=== PATIENT | female | born 2000 | race Caucasian/White ===

== ENCOUNTER 2024-08-29 14:01 | Emergency (ER) | payer BC, SELFPAY ==
[2024-08-29 14:03] VITALS: BP 123/82; PULSE 85; RESP 16; TEMP 36.6; O2SAT 96; BMI 27.1
--- NOTE | 2024-08-29 14:39 | EDS_ITS ---
HPI HPI - GI History of Present Illness Chief Complaint: Abd Pain Informant: patient Abdominal Pain/Flank Pain Onset: Month(s) Context: Gradual Onset Timing: Continuous Quality: Burning Location: Epigastric and RUQ Current Severity: Mild Maximum Severity: Moderate Worsened by: Food Relieved by: Nothing Nausea/Vomiting/Emesis GI Symptom: Negative for Nausea or Vomiting Diarrhea/Melena/Hematochezia GI Symptom: Negative for Diarrhea, Melena or Hematochezia Associated Symptoms Associated Symptoms: Negative for Dysuria, Frequency, Hematuria or Urgency Narrative Narrative: Healthy 24-year-old female no seen past medical or surgical history. States she has had abdominal pain primarily epigastric last 3 months. Had an upper endoscopy done by [facility] telecommunications network engineer which showed no specific abnormality. She has been on omeprazole once it initially helped but now the pain seems to be getting worse. If she has had at least a 10 pound weight loss maybe as much is 25. She said the last few days the pains gotten worse. She denies any vomiting or diarrhea. No fever. No melena. Eating makes the pain worse. Nothing particular makes it better. She has never had any abdominal surgeries. Denies any vaginal bleeding or dysuria. Last menstrual period was 2 days ago Prior similar symptoms: Yes Recent Illness/Hospitalization: No PFSH PFSH Medical History no medical history no medical history Home Medications ?Medication ?Instructions ?Recorded ?Last Taken ?Type omeprazole 40 mg capsule,delayed 40 mg PO DAILY 08/29/24 Unknown History release sucralfate 1 gram tablet (Carafate) 1 g PO Q6H 10 days #40 tabs 08/29/24 Unknown Rx Allergy/AdvReac Type Severity Reaction Status Date / Time Penicillins (PCN) Allergy Mild Hives Verified 08/29/24 14:05 Surgical History H/O knee surgery Social History Smoking Status: Never smoker ROS ROS ED ROS Narrative Epigastric abdominal pain. Constitutional Constitutional ED: Denies chills or fever(s) ENT ENT ED: Denies ear pain Cardiovascular Cardiovascular: Denies chest pain Respiratory/Chest Respiratory/Chest: Denies cough Gastrointestinal Gastrointestinal: Reports abdominal pain; Denies constipation, diarrhea, melena, nausea or vomiting Genitourinary Genitourinary ED: Denies dysuria or hematuria Musculoskeletal Musculoskeletal: Denies arthralgias or back pain Integumentary Denies abscess Neurologic Neurologic: Denies headache(s) Psychiatric Psychiatric: Denies anxiety Endocrine Endocrinology: Denies polydipsia Hematologic/Lymphatic Hematologic/Lymphatic: Denies easy bleeding Allergic/Immunologic Allergic/Immunologic ED: Denies mouth swelling, tongue swelling or urticaria EXAM Physical Exam Narrative Exam Narrative: Well-appearing 25-year-old female. Vital signs stable afebrile. H EENT exam unremarkable. Mytrex murmurs. Neck nontender no lymphadenopathy. Lungs clear to auscultation bilateral. Heart regular rhythm rate about 80 no murmur. Chest wall ribs nontender. Abdomen soft nondistended normal bowel sounds without peritoneal signs. Very mild epigastric tenderness. No right upper quadrant tenderness or Velazquez sign. No right lower quadrant tenderness. No hernia. No mass. No distention. Moving all 4 extremities. Nontender no edema. Back nontender. Neurologically patient awake alert no focal motor deficits. Const Vital Signs: 08/29/24 14:03 Temperature 97.8 F Temperature Source Oral Pulse Rate 85 Respiratory Rate 16 Blood Pressure 123/82 H Blood Pressure Mean 95 Pulse Ox 96 Oxygen Delivery Method Room Air Positive well nourished and well developed; Negative for obese, cachectic, contractures or unkempt General Appearance ED: well developed and NAD; Negative for unkempt, cachectic, contractures or pallor Nutritional Appearance: Negative for cachectic or obese HEENT Reports moist mucous membranes normocephalic and atraumatic Eyes PERRL and EOMs intact bilaterally Neck no lymphadenopathy, supple and no JVD General: Negative for tenderness Carotids: Negative for other Resp normal respiratory effort and clear to auscultation bilaterally Effort and Inspection: Negative for respiratory distress Auscultation: Negative for rales, rhonchi or wheezes Cardio regular rate, regular rhythm, S1 normal heart sound, S2 normal heart sound and no murmurs Rate: Negative for bradycardia or tachycardic GI non-distended and no masses; Negative for non-tender Inspection: Negative for abdominal distention Auscultation: normoactive bowel sounds Palpation: soft and tender; Negative for guarding, rigid, hernia, mass, pulsatile mass or rebound tenderness present Back/Spine no CVA tenderness General Back: Negative for CVA tenderness Cervical Spine: Negative for cervical spine tenderness Thoracic Spine / Upper Back: Negative for thoracic spinal tenderness Lumbar Spine / Lower Back: Negative for lumbar spinal tenderness Coccyx: Negative for other Extremity full ROM General Extremety ED: Negative for edema or tenderness General Extremity: Negative for edema Neuro CN's II-XII intact bilaterally and moves all extremities Sensorium / Orientation: alert, oriented to person and oriented to place Motor Exam: strength 5/5 throughout Psych mental status grossly normal and thought process normal Appearance: Negative for unkempt Attitude: No agitated Mood & Affect: Negative for depressed or anxious Skin no wounds General Skin Exam: Negative for jaundice or pallor Lesions: no lesions Rashes: no rashes MDM MDM MDM Narrative Medical decision making narrative: 24 her abdomen is benign I do not think a CAT scan is going to show anything at this time. She ate about an hour and a half ago I do not think an ultrasound would be helpful at this time due to most likely the gallbladder be contracted. And her exam really is not for cholecystitis. Labs can be obtained. She be treated with GI cocktail and Protonix. Repeat exam patient is doing well at 3:30 PM. Abdomen is benign. We went over all of her test results. Again she ate recently ultrasound would most likely show a contracted gallbladder. I do not think a CAT scan would be very helpful. Patient is comfortable being discharged home with outpatient right upper quadrant gallbladder ultrasound which I am setting up for her. Patient is scheduled for 730 tomorrow morning. She knows to remain n.p.o. after midnight. History & Record Review Discussion w/independent historian: Patient and Significant other Lab Data Attestation: I reviewed the patient's lab results. Lab results narrative: CBC normal. White count of 7. H&H of 14 and 45. Platelets 228. Electrolytes unremarkable gap 6. Normal BUN of 8 creatinine 1. Glucose 99. Liver enzymes unremarkable total bilirubin 1.2. Lipase 45. Serum test negative. Labs: Laboratory Results - last 24 hr 08/29/24 14:15 WBC 7.5 RBC 5.15 Hgb 14.9 Hct 45.5 MCV 88.3 MCH 28.9 MCHC 32.7 RDW Std Deviation 39.7 RDW Coeff of Ashutosh 12.3 Plt Count 228 MPV 9.7 Immature Gran % (Auto) 0.400 Neut % (Auto) 63.7 Lymph % (Auto) 27.1 Burnett % (Auto) 6.2 Eos % (Auto) 1.9 Baso % (Auto) 0.7 Absolute Neuts (auto) 4.8 Absolute Lymphs (auto) 2.02 Nucleated RBC % 0 Sodium 139 Potassium 4.7 Chloride 109 H Carbon Dioxide 24.0 Anion Gap 6 BUN 8 Creatinine 1.00 Estim Creat Clear Calc 87.34 Est GFR (MDRD) Af Amer 87 Est GFR (MDRD) Non-Af 72 BUN/Creatinine Ratio 8.0 L Glucose 99 Calcium 8.9 Total Bilirubin 1.20 H AST 35 ALT 26 Alkaline Phosphatase 62 Total Protein 7.8 Albumin 3.3 Globulin 4.5 H Albumin/Globulin Ratio 0.7 L Lipase 45 Serum , Qual NEGATIVE Discharge Plan Triage Chief Complaint: Abd Pain ED Provider: Magen Azevedo Dx/Rx/DC Orders Clinical Impression: Abdominal pain Instructions: Abdominal Pain Prescriptions: New sucralfate [Carafate] 1 gram tablet 1 g PO Q6H 10 Days Qty: 40 0RF Rx Instructions: Take 1 Carafate tablet before each meal and at bedtime. No Action omeprazole 40 mg capsule,delayed release(DR/EC) 40 mg PO DAILY Other Ambulatory Orders: Gallbladder (Routine) Facility: [facility] - Location: [facility] Ordered By: Dr. Magen Azevedo Primary Care Provider: Care Physician,No Primary Referrals: Care Physician,No Primary [Primary Care Provider] - Activity Restrictions/Additional Instructions: Follow-up with your new primary care physician as scheduled. Your labs were normal today. If you are having worsening pain, fever or intractable vomiting return. Continue your omeprazole. I will also place you on something called Carafate which will take before each meal and at bedtime. Follow-up to get your outpatient ultrasound of your gallbladder. Print Language: Romansh Disposition Disposition: Home, Self Care
[2024-08-29 14:47] LABS: Absolute Lymphocyte Count 2.02 X10^3/uL (0.83-4.51); Absolute Neutrophil Count 4.8 X10^3/uL (2.0-7.7); Basophil# 0.05 X10^3/uL; Basophil% 0.7 % (0-1); Eosinophil# 0.14 X10^3/uL; Eosinophils% 1.9 % (0-5); Hematocrit 45.5 % (37-47); Hemoglobin 14.9 g/dL (12.0-15.0); Lymphocyte # 2.02 X10^3/ul (0.83-4.51); Lymphocyte % 27.1 % (19-41); Mean Corp Hgb Conc 32.7 g/dL (32-36); Mean Corpuscular Hgb 28.9 pg (27.0-32.0); Mean Corpuscular Volume 88.3 fL (81-99); Mean Platelet Vol. 9.7 fl (6.2-12.0); Monocyte# 0.46 X10^3/uL; Monocyte% 6.2 % (0-10); NRBC Flagged by Analyzer 0 % (0-5); Neutrophil # 4.75 X10^3/uL (2.7-7.7); Neutrophil % 63.7 % (47-70); Platelet Count 228 K/mm3 (150-450); RBC Distribution Width CV 12.3 % (11.6-14.6); RBC Distribution Width SD 39.7 fl (35.1-43.9); Red Blood Count 5.15 M/mm3 (4.2-5.4); White Blood Count 7.5 K/mm3 (4.4-11.0)
[2024-08-29] MEDS: Pantoprazole Sodium 40 MG Tablet PO (14:47)
[2024-08-29] MEDS: Lidocaine 2% Viscous15 ML UDC 15 ML PO (14:47)
[2024-08-29] MEDS: Mag Hydrox/Al Hydrox/Simeth 30 ML UDC PO (14:47)
[2024-08-29 14:53] LABS: Internal QC Validated? YES +Cl - CLEAR BKGD; Pregnancy, Serum, hCG Quali. NEGATIVE Negative
[2024-08-29 15:10] LABS: ALB/GLOB Ratio 0.7 RATIO (0.9-2.4); AST(SGOT) 35 U/L (15-37); Alanine Aminotransfer ALT/SGPT 26 U/L (13-56); Albumin, Serum 3.3 g/dL (3.2-5.0); Alkaline Phosphatase 62 U/L (45-117); Anion Gap 6 (5-15); BUN 8 mg/dL (7-18); Calcium,Total 8.9 mg/dL (8.5-10.1); Chloride 109 mmol/L (98-107); EST Glomerular Filtration Rate 72 mL/min (>60); Est Glom Filt Rate - Afr Amer 87 mL/min (>60); Estimated Creatinine Clearance 87.34 ml/min; Globulin 4.5 g/dL (2.2-4.2); Glucose 99 mg/dL (74-106); Lipase 45 U/L (13-75); Potassium 4.7 mmol/L (3.5-5.1); Protein, Total 7.8 g/dL (6.4-8.2); Sodium Level 139 mmol/L (136-145)
== END 2024-08-29 16:11 | disposition home or self-care (01) ==
PROVIDERS: Emergency Provider Emergency Medicine; Referring Provider Emergency Medicine; Visit Provider Emergency Medicine
DX: R10.9 Unspecified abdominal pain (principal); Z79.899 Other long term (current) drug therapy
CPT/HCPCS: 80053; 83690; 84703; 85025; 99283; A4216

== ENCOUNTER → 2024-08-30 | Outpatient (CLI) | payer BC, SELFPAY ==
--- NOTE | 2024-08-30 07:23 | US_ITS ---
EXAM: US ABDOMEN LIMITED, RIGHT UPPER QUADRANT CLINICAL INDICATION: abd pain TECHNIQUE: Real-time ultrasound of the right upper quadrant with image documentation. COMPARISON: No relevant prior studies available. FINDINGS: LIVER: The liver measures 13.9 cm in length. There is normal echotexture. No intrahepatic biliary ductal dilation. GALLBLADDER: Gallbladder wall measures 1 mm. No shadowing gallstone. No pericholecystic fluid. Negative sonographic Velazquez''s sign. COMMON BILE DUCT: Common bile duct measures 3 mm. The proximal common bile duct is within normal limits for the patient''s age. PANCREAS: Unremarkable as visualized. No focal abnormality is demonstrated in the pancreas. No pancreatic ductal dilatation. RIGHT KIDNEY: The right renal cortex measures 1.4 cm. There is no hydronephrosis. No shadowing calculus. No focal lesion or perinephric collection is demonstrated. The right kidney measures 9.2 x 4.5 4.2 cm. US/Gallbladder IMPRESSION: No acute findings in the right upper quadrant. Electronically Signed: Tay Johnson MD at 0:01 EDT ,
== END | disposition home or self-care (01) ==
LOC: US 07:19
PROVIDERS: Referring Provider Emergency Medicine; Visit Provider Emergency Medicine
DX: R10.9 Unspecified abdominal pain (principal)
CPT/HCPCS: 76705

== ENCOUNTER 2025-01-08 16:03 | Emergency (ER) | payer OTHER, BC, SELFPAY ==
[2025-01-08 16:06] VITALS: BP 115/71; PULSE 91; RESP 18; TEMP 36.6; O2SAT 100; BMI 24.7
[2025-01-08 20:05] VITALS: BP 105/60; PULSE 72; RESP 16; O2SAT 100
--- NOTE | 2025-01-08 20:20 | EX.ED.GENINJ ---
HPI History of Present Illness Chief Complaint: Head Injury [facility] Medical History (Updated 01/08/25 @ 20:02 by Lila Long) H/O multiple concussions Home Medications ?Medication ?Instructions ?Recorded ?Last Taken ?Type omeprazole 40 mg capsule,delayed 40 mg PO DAILY 08/29/24 Unknown History release sucralfate 1 gram tablet (Carafate) 1 g PO Q6H 10 days #40 tabs 08/29/24 Unknown Rx Allergy/AdvReac Type Severity Reaction Status Date / Time Penicillins (PCN) Allergy Mild Hives Verified 01/08/25 16:06 Surgical History H/O knee surgery Social History Smoking Status: Never smoker EXAM Physical Exam Const Vital Signs: 01/08/25 16:06 01/08/25 20:02 01/08/25 20:05 Temperature 97.9 F Temperature Source Temporal Pulse Rate 91 72 Respiratory Rate 18 16 Respiratory Effort Normal Respiratory Depth Normal Respiratory Pattern Normal Blood Pressure 115/71 105/60 Blood Pressure Mean 85 75 Pulse Ox 100 100 Oxygen Delivery Method Room Air Room Air Room Air MDM MDM MDM Narrative Medical decision making narrative: HISTORY OF PRESENT ILLNESS: 24-year-old female presents with head trauma. Notes she hit her head on a metal desk at work. She notes headache, eye pain blurred vision high-sensitivity. States is similar to her prior 5 concussions. Patient denies sudden onset or thunderclap headache, denies maximal intensity within 1 minute, vomiting, neck pain, stiffness, changes in vision, fever, history malignancy, syncope, or seizures associated with headache. REVIEW OF SYSTEMS: Pertinent positives: As per HPI Pertinent negatives: Vomiting, loss of movement, loss sensation, loss of vision PHYSICAL EXAM: Nursing triage notes reviewed, Vital signs reviewed Constitutional: please see mdm HENT: MMM, atraumatic, normal cephalic, no cephalhematoma Eyes: Pupils equal round and reactive to light, Extraocular muscles intact Neck: No stridor, no JVD, full neck ROM Lungs: Clear to auscultation, No wheezing or rales. No increased work of breathing, no conversational dyspnea, no accessory muscle use, no nasal flaring. No respiratory distress noted Heart: Regular rate and rhythm, No murmurs, No rubs and No gallops, 2+ distal pulses (radial, femoral, posterior tibial) in all extremities Abdomen: Soft, there is no tenderness, rigidity, rebound or guarding, no obvious peritoneal signs, no palpable pulsatile abdominal masses, no auscultated abdominal bruit : No CVAT Extremities: No edema Neuro: N alert and oriented x3, neuro exam at baseline, cranial nerves II through XII are intact. No pain with extraocular muscle movement. There is negative test of skew. 5 of 5 strength in upper and lower extremities in flexion extension. Intact sensation to light touch in upper and lower extremity dermatomes. No truncal or extremity ataxia. No dysdiadochokinesia. Normal gait. 2+ reflexes in upper and lower extremities. No meningeal signs. Negative Babinski. NIH of 0. Skin: No rash or lesions noted MEDICAL DECISION MAKING: Chief Complaint: Headache, head trauma External records reviewed:Reviewed prior imaging studies Factors affecting care: none Social determinants of health: none History obtained from others: none Consults: none MDM Narrative: Patient was initially hemodynamically stable, afebrile and nontoxic-appearing. Primary secondary trauma surveys concerning for the following differential: I considered the following differential diagnosis: ICH, concussion Patient is greater than 16, is not on blood thinners, no seizure after injury, GCS was stable 2 hours postinjury, no depressed skull fracture, no evidence of basilar skull fracture, no vomiting. Age less than 65, no retrograde amnesia and mechanism is not dangerous. CT scan of the head is not indicated at this time. I had a long shared decision-making discussion with the patient about risk and benefits of advanced imaging. Discussed risk of CT malignancy versus risk of missed diagnosis. We both agreed the patient did not require advanced images. The patient and/or family, caregivers express understanding. The patient and/or family, caregivers agrees with the plan. Shared decision making: I will have a discussion with the patient and or visitors regarding risk/benefits of further testing or admission. They will be made aware of of the risk/benefits inherent in this decision they will be given the opportunity to voice understanding. Total critical care time today provided was at least 0 minutes. This excludes separately billable procedures. Critical care time (if documented) is secondary to the patient having high probability of clinically significant/life threatening deterioration in the patient's condition which required my urgent intervention. Impression: 1. Close head injury 2. Concussion Dispo: Discharge home This note was generated with VPEP dictation software. It may contain incorrect words, spelling, and punctuation that were not noted in review of the chart prior to signing. Discharge Plan Triage Chief Complaint: Head Injury ED Provider: Mario Maldonado Dx/Rx/DC Orders Prescriptions: No Action omeprazole 40 mg capsule,delayed release(DR/EC) 40 mg PO DAILY sucralfate [Carafate] 1 gram tablet 1 g PO Q6H 10 Days Qty: 40 0RF Rx Instructions: Take 1 Carafate tablet before each meal and at bedtime. Primary Care Provider: Care Physician,No Primary Referrals: Care Physician,No Primary [Primary Care Provider] - Print Language: Indonesian
[2025-01-08 20:53] VITALS: BP 105/60; PULSE 72; RESP 16; TEMP 36.6; O2SAT 100
== END 2025-01-08 20:54 | disposition home or self-care (01) ==
LOC: ED 20:41
PROVIDERS: Emergency Provider Emergency Medicine; PCP Family Medicine; Visit Provider Emergency Medicine
DX: S06.0X0A Concussion without loss of consciousness, initial encounter (principal); X58.XXXA Exposure to other specified factors, initial encounter
CPT/HCPCS: 99282

== ENCOUNTER 2025-01-14 07:34 | Emergency (ER) | payer BC, SELFPAY ==
[2025-01-14 07:34] VITALS: BP 119/57; PULSE 82; RESP 16; TEMP 36.5; O2SAT 100; BMI 24.1
--- NOTE | 2025-01-14 07:56 | CT_ITS ---
EXAM: CT Abdomen and Pelvis With Intravenous Contrast CLINICAL INDICATION: TECHNIQUE: Axial computed tomography images of the abdomen and pelvis with intravenous contrast. This CT exam was performed using one or more of the following dose reduction techniques: automated exposure control, adjustment of the mA and/or kV according to patient size, and/or use of iterative reconstruction technique. COMPARISON: No relevant prior studies available. FINDINGS: LUNG BASES: Unremarkable. No mass. No consolidation. ABDOMEN: LIVER: Hepatomegaly with fatty infiltration. GALLBLADDER AND BILE DUCTS: Gallbladder is surgically absent. No ductal dilation. PANCREAS: Unremarkable. No mass. No ductal dilation. SPLEEN: Unremarkable. No splenomegaly. ADRENALS: Unremarkable. No mass. KIDNEYS AND URETERS: Unremarkable. No stones within either kidney. No hydronephrosis. STOMACH AND BOWEL: Unremarkable. No obstruction. No mucosal thickening. PELVIS: APPENDIX: Normal appendix. BLADDER: Unremarkable. No mass. REPRODUCTIVE: Unremarkable as visualized. ABDOMEN and PELVIS: INTRAPERITONEAL SPACE: Unremarkable. No free air. No significant fluid collection. BONES/JOINTS: No acute fracture. No dislocation. SOFT TISSUES: Umbilical hernia containing fat. VASCULATURE: Unremarkable. No abdominal aortic aneurysm. LYMPH NODES: Unremarkable. No enlarged lymph nodes. CT/Abdomen/Pelvis W IV Cont ONLY IMPRESSION: 1. Normal appendix. 2. Hepatomegaly with fatty infiltration. 3. Umbilical hernia containing fat. 4. No obstructive uropathy. Reading [facility]
--- NOTE | 2025-01-14 07:57 | ED.VIS.GI ---
HPI HPI - GI History of Present Illness Chief Complaint: Abd Pain Detail of Chief Complaint: Right upper quadrant abdominal pain for 3 weeks. Sharp and stabbing. Informant: patient Abdominal Pain/Flank Pain Onset: Weeks Context: Gradual Onset Timing: Continuous Quality: Aching Location: RUQ Current Severity: Mild Maximum Severity: Moderate Worsened by: Food Relieved by: Nothing Nausea/Vomiting/Emesis GI Symptom: Negative for Nausea or Vomiting Associated Symptoms Associated Symptoms: Negative for Dysuria, Frequency, Hematuria or Urgency Narrative Narrative: 24-year-old female history of prior cholecystectomy 3 months ago. Complaining of sharp right upper quadrant abdominal pain for the last 3 weeks. Mild weight loss. No vomiting or diarrhea. No dysuria. No fever. No diarrhea. History of kidney stones today felt different. No other abdominal surgery besides her cholecystectomy. Prior similar symptoms: No Recent Illness/Hospitalization: No PFSH PFSH Medical History Anxiety Depression FHx: cholecystectomy Ovarian cyst H/O multiple concussions Home Medications ?Medication ?Instructions ?Recorded ?Last Taken ?Type NK 01/14/25 Unknown History Allergy/AdvReac Type Severity Reaction Status Date / Time Penicillins (PCN) Allergy Mild Hives Verified 01/14/25 07:34 Family History no significant family his Surgical History H/O knee surgery Social History Smoking Status: Never smoker ROS ROS ED ROS Narrative Right upper quadrant abdominal pain. Constitutional Constitutional ED: Denies chills or fever(s) ENT ENT ED: Denies ear pain Cardiovascular Cardiovascular: Denies chest pain Respiratory/Chest Respiratory/Chest: Denies cough Gastrointestinal Gastrointestinal: Reports abdominal pain; Denies constipation, diarrhea, melena, nausea or vomiting Genitourinary Genitourinary ED: Denies dysuria or hematuria Musculoskeletal Musculoskeletal: Denies arthralgias Integumentary Denies abscess Neurologic Neurologic: Denies headache(s) Psychiatric Psychiatric: Denies anxiety Endocrine Endocrinology: Denies polydipsia Hematologic/Lymphatic Hematologic/Lymphatic: Denies easy bleeding Allergic/Immunologic Allergic/Immunologic ED: Denies mouth swelling or tongue swelling EXAM Physical Exam Narrative Exam Narrative: 24-year-old female vital signs stable afebrile. H EENT exam unremarkable. Moist mucous membranes. Pupils round react light. Neck nontender. Lungs clear to auscultation bilaterally. Heart regular rhythm no murmur. Rate about 80. Abdomen soft, nontender, nondistended normal bowel sounds without peritoneal signs. She is complaining of right upper quadrant abdominal pain but is not reproducible pain does not get worse with palpation of that area. There is no ecchymosis or bruising. No rash. Her ribs are nontender. Right lower and left side of the abdomen completely nontender. No bruising. No hernia or mass. No distention or obstruction. Soft. Positive bowel sounds. Back nontender. No reproducible pain. Moving all 4 extremities. Nontender no edema. Neurologically she is awake and alert no focal motor deficits. Const Vital Signs: 01/14/25 07:34 01/14/25 09:34 Temperature 97.7 F L Temperature Source Oral Pulse Rate 82 73 Respiratory Rate 16 16 Blood Pressure 119/57 L Blood Pressure Mean 77 Pulse Ox 100 99 Oxygen Delivery Method Room Air Room Air Positive well nourished and well developed; Negative for obese, cachectic, contractures or unkempt General Appearance ED: well developed and NAD; Negative for unkempt, cachectic, contractures or pallor Nutritional Appearance: Negative for cachectic or obese HEENT Reports moist mucous membranes normocephalic and atraumatic; Negative for trauma or tenderness Eyes PERRL and EOMs intact bilaterally General Eye ED: Negative for pale conjunctiva or scleral icterus Neck no lymphadenopathy, supple and no JVD General: Negative for tenderness Carotids: Negative for other Resp normal respiratory effort and clear to auscultation bilaterally Effort and Inspection: Negative for respiratory distress Auscultation: Negative for rales, rhonchi, wheezes or diminished lung sounds Cardio regular rate, regular rhythm, S1 normal heart sound, S2 normal heart sound and no murmurs Rate: Negative for bradycardia or tachycardic Rhythm: Negative for abnormal rhythm GI non-tender, non-distended and no masses Inspection: Negative for abdominal distention Auscultation: normoactive bowel sounds Palpation: soft; Negative for tender, guarding, rigid, hepatomegaly, splenomegaly, hernia, mass, pulsatile mass or rebound tenderness present Back/Spine no CVA tenderness General Back: Negative for CVA tenderness Cervical Spine: Negative for cervical spine tenderness Thoracic Spine / Upper Back: Negative for thoracic spinal tenderness Lumbar Spine / Lower Back: Negative for lumbar spinal tenderness Extremity full ROM General Extremety ED: Negative for edema or tenderness General Extremity: Negative for edema Neuro CN's II-XII intact bilaterally and moves all extremities Sensorium / Orientation: alert; Negative for oriented to person, oriented to place, oriented to time or orientation impaired Sensory Exam: No sensory level loss detected Motor Exam: strength 5/5 throughout; Negative for general weakness or strength abnormal Psych mental status grossly normal and thought process normal Appearance: Negative for unkempt Skin no wounds General Skin Exam: Negative for jaundice or pallor Lesions: no lesions Rashes: no rashes MDM MDM MDM Narrative Medical decision making narrative: 24-year-old female right upper quadrant abdominal pain 3 months ago had her gallbladder removed at [facility] in [place]. Exam is benign. Pain is not reproducible. She did not want a thing for pain or nor nausea. CAT scan the labs being obtained. Repeat exam at 10:08 AM patient doing well. Pain-free. Abdomen benign. No reproducible pain over her right lower lateral rib cage or her right upper quadrant or back. Exam unchanged. We discussed her test results and CAT scan she will be discharged to home with outpatient follow-up. Urine was contaminated she is having no urinary symptoms I do not think that needs to be treated. Lab Data Attestation: I reviewed the patient's lab results. Lab results narrative: CBC shows a white count of 5. H&H 14 and 44. Platelets 200. Electrolytes show a gap of 9. Normal BUN and creatinine. Glucose 85. Liver enzymes unremarkable other than total bilirubin 1.5 previously elevated. Lipase 33. Serum test negative. Urinalysis contaminated there is 25-50 white cells with 5-10 epithelial cells. 4+ bacteria. No nitrites. CAT scan no acute abnormality. Labs: Laboratory Results - last 24 hr 01/14/25 01/14/25 08:06 08:09 WBC 5.4 RBC 5.07 Hgb 14.8 Hct 44.6 MCV 88.0 MCH 29.2 MCHC 33.2 RDW Std Deviation 39.3 RDW Coeff of Ashutosh 12.3 Plt Count 200 MPV 9.8 Immature Gran % (Auto) 0.200 Neut % (Auto) 52.5 Lymph % (Auto) 37.1 [place] % (Auto) 6.3 Eos % (Auto) 3.2 Baso % (Auto) 0.7 Absolute Neuts (auto) 2.8 Absolute Lymphs (auto) 1.99 Nucleated RBC % 0 Sodium 139 Potassium 3.7 Chloride 108 H Carbon Dioxide 23.0 Anion Gap 9 BUN 10 Creatinine 0.96 Estim Creat Clear Calc 81.31 Est GFR (MDRD) Af Amer 91 Est GFR (MDRD) Non-Af 75 BUN/Creatinine Ratio 10.4 Glucose 85 Calcium 8.9 Total Bilirubin 1.50 H AST 11 L ALT 17 Alkaline Phosphatase 60 Total Protein 7.5 Albumin 3.4 Globulin 4.1 Albumin/Globulin Ratio 0.8 L Lipase 33 L Serum , Qual NEGATIVE Urine Color Yellow Urine Clarity Sl. Cloudy Urine pH 6.0 Ur Specific [place] 1.025 Urine Protein 30 H Urine Glucose (UA) Normal Urine Ketones Negative Urine Occult Blood 25 H Urine Nitrite Negative Urine Bilirubin Negative Urine Urobilinogen Normal Ur Leukocyte Esterase 500 H Urine RBC 5-10 SEEN Urine WBC 25-50 SEEN Ur Squamous Epith Cells 5-10 SEEN Ur Transition Epith Cell 0-5 SEEN Ur Renal Epithelial Cell 0-5 SEEN Urine Bacteria 4+ Urine Mucus 0 SEEN Radiography Diagnostic Testing: Clinical Impression(s) from Imaging Studies Abdomen/Pelvis CT 01/14/25 07:56 IMPRESSION: 1. Normal appendix. 2. Hepatomegaly with fatty infiltration. 3. Umbilical hernia containing fat. 4. No obstructive uropathy. Reading [facility] Discharge Plan Triage Chief Complaint: Abd Pain ED Provider: Magen Azevedo Dx/Rx/DC Orders Clinical Impression: Abdominal pain Instructions: Abdominal Pain Prescriptions: No Action NK Primary Care Provider: Milo Blanc Referrals: Milo Blanc MD [Primary Care Provider] - 1 Week if not improving Activity Restrictions/Additional Instructions: Your labs and CAT scan look good. Motrin and Tylenol for any pain. Follow-up with your doctor if not improving. Print Language: Bengali Disposition Disposition: Home, Self Care
[2025-01-14 08:17] LABS: Mucous, Urine 0 SEEN /hpf (<or=2+)
[2025-01-14 08:20] LABS: Absolute Lymphocyte Count 1.99 X10^3/uL (0.83-4.51); Absolute Neutrophil Count 2.8 X10^3/uL (2.0-7.7); Basophil# 0.04 X10^3/uL; Basophil% 0.7 % (0-1); Eosinophil# 0.17 X10^3/uL; Eosinophils% 3.2 % (0-5); Hematocrit 44.6 % (37-47); Hemoglobin 14.8 g/dL (12.0-15.0); Lymphocyte # 1.99 X10^3/ul (0.83-4.51); Lymphocyte % 37.1 % (19-41); Mean Corp Hgb Conc 33.2 g/dL (32-36); Mean Corpuscular Hgb 29.2 pg (27.0-32.0); Mean Platelet Vol. 9.8 fl (6.2-12.0); Monocyte# 0.34 X10^3/uL; Monocyte% 6.3 % (0-10); NRBC Flagged by Analyzer 0 % (0-5); Neutrophil # 2.81 X10^3/uL (2.7-7.7); Neutrophil % 52.5 % (47-70); Platelet Count 200 K/mm3 (150-450); RBC Distribution Width CV 12.3 % (11.6-14.6); RBC Distribution Width SD 39.3 fl (35.1-43.9); Red Blood Count 5.07 M/mm3 (4.2-5.4); White Blood Count 5.4 K/mm3 (4.4-11.0)
[2025-01-14 08:34] LABS: Color, Urine Yellow (Yellow); Glucose, Dipstick Normal (Normal); Ketone-Dipstick Negative (Negative); Leukocyte Esterase-Dipstick 500 /ul (Negative); Nitrite-Dipstick Negative (Negative); Occult Blood-Urine 25 /ul (Negative); Protein-Dipstick 30 mg/dl (Negative); Specific Gravity, Urine 1.025 (1.002-1.030); Urine Bilirubin Dipstick Negative (Negative); Urine Clarity Sl. Cloudy (Clear); Urine Urobilinogen Normal (Normal)
[2025-01-14 08:44] LABS: Internal QC Validated? YES +Cl - CLEAR BKGD; Pregnancy, Serum, hCG Quali. NEGATIVE Negative
[2025-01-14 08:46] LABS: Bacteria 4+ /hpf (None Seen); Red Blood Cells-Urine 5-10 SEEN /hpf (0-5); Renal Epithelial Cells 0-5 SEEN /hpf (0-5); Squamous Epithelial Cells - UA 5-10 SEEN /hpf (5-10); Transitional Epithelial - Ur 0-5 SEEN /hpf (0-5); White Blood Cells 25-50 SEEN /hpf (0-5)
[2025-01-14 08:50] LABS: ALB/GLOB Ratio 0.8 RATIO (0.9-2.4); AST(SGOT) 11 U/L (15-37); Alanine Aminotransfer ALT/SGPT 17 U/L (13-56); Albumin, Serum 3.4 g/dL (3.2-5.0); Alkaline Phosphatase 60 U/L (45-117); Anion Gap 9 (5-15); BUN 10 mg/dL (7-18); BUN/Creat Ratio 10.4 RATIO (10-20); Calcium,Total 8.9 mg/dL (8.5-10.1); Chloride 108 mmol/L (98-107); Creatinine, Serum 0.96 mg/dL (0.55-1.02); EST Glomerular Filtration Rate 75 mL/min (>60); Est Glom Filt Rate - Afr Amer 91 mL/min (>60); Estimated Creatinine Clearance 81.31 ml/min; Globulin 4.1 g/dL (2.2-4.2); Glucose 85 mg/dL (74-106); Lipase 33 U/L (73-393); Potassium 3.7 mmol/L (3.5-5.1); Protein, Total 7.5 g/dL (6.4-8.2); Sodium Level 139 mmol/L (136-145)
[2025-01-14 09:34] VITALS: PULSE 73; RESP 16; O2SAT 99
[2025-01-14 10:23] VITALS: BP 119/57; PULSE 73; RESP 16; TEMP 36.5; O2SAT 99
== END 2025-01-14 10:26 | disposition home or self-care (01) ==
PROVIDERS: Emergency Provider Emergency Medicine; PCP Family Medicine; Visit Provider Emergency Medicine
DX: R10.11 Right upper quadrant pain (principal)
CPT/HCPCS: 74177; 80053; 81001; 83690; 84703; 85025; 99283; Q9967; A4216